=== PATIENT | male | born 1975 | race Caucasian/White ===

== ENCOUNTER 2023-01-27 06:20 | Day surgery (SDC) | payer BC ==
[~2023-01-27 06:20] MED LIST: Dextrose 5%-0.45% NaCl 1,000 ML IV SCH
[2023-01-27] MEDS ORDERED: fentaNYL 100 MCG/2 ML SDV IV ONE ×6 (06:21→07:37)
[2023-01-27] MEDS ORDERED: Midazolam 1 MG/ML 2 ML SDV IV ONE ×6 (06:21→07:31)
[2023-01-27] MEDS ORDERED: Midazolam 1 MG/ML 2 ML SDV ONE (06:51)
[2023-01-27] MEDS ORDERED: fentaNYL 100 MCG/2 ML SDV ONE (06:52)
== END 2023-01-27 09:00 | disposition home or self-care (01) ==
LOC: DL.ENDO 06:20
PROVIDERS: ATTEND Internal Medicine Gastroenterology
DX: Z12.11 Encounter for screening for malignant neoplasm of colon (principal); E78.1 Pure hyperglyceridemia; E11.9 Type 2 diabetes mellitus without complications; N52.9 Male erectile dysfunction, unspecified; F10.90 Alcohol use, unspecified, uncomplicated; Z90.79 Acquired absence of other genital organ(s)
CPT/HCPCS: J2250; J3010; J7042